=== PATIENT | male | born 1970 | race Caucasian/White ===

== ENCOUNTER 2023-10-14 22:52 | Emergency (ER) | payer OTHER, SELFPAY ==
[2023-10-14 22:59] VITALS: BP 142/94
[2023-10-14 23:14] LABS: % Eosinophils 2.1 % (0-6); % Lymphocytes 16.5 % (20.5-51.1); % Monocytes 8.6 % (1.7-9.3); % Neutrophils 70.8 % (42.2-75.2); Absolute Basophils 0.1 10^3/uL (0-0.2); Absolute Eosinophils 0.2 10^3/uL (0-0.7); Absolute Immature Granulocytes 0.1 10^3/uL (0-0.05); Absolute Lymphocytes 1.9 10^3/uL (1.2-3.4); Absolute Neutrophils 8.1 10^3/uL (1.4-6.5); Hematocrit 53.4 % (39.0-52.0); Hemoglobin 19.4 g/dL (13.0-18.0); Mean Corp Hgb Conc. 36.3 g/dL (33.0-37.0); Mean Corpuscular Hgb 33.3 pg (27.0-31.0); Mean Corpuscular Volume 91.6 fL (80.0-94.0); Mean Platelet Volume 9.3 fL (7.4-10.4); Nucleated Red Blood Cells % 0 % (-); Platelet Count 320 10^3/uL (130-400); Red Blood Cell Count 5.83 10^6/uL (4.70-6.10); Red Cell Dist. Width 12.6 % (11.5-14.5); White Blood Cell Count 11.5 10^3/uL (4.8-10.8)
[2023-10-14 23:26] LABS: Amphetamines Negative (Negative); Barbiturates Negative (Negative); Benzodiazepines Negative (Negative); Buprenorphine Negative (Negative); Cocaine Negative (Negative); Marijuana Negative (Negative); Methadone Negative (Negative); Methamphetamines Negative (Negative); Opiates Negative (Negative); Phencyclidine Negative (Negative); Tricyclic Antidepressants Negative (Negative)
[2023-10-14 23:34] LABS: Alcohol 14 mg/dl; Blood Urea Nitrogen 23 mg/dl (9-20); Carbon Dioxide 21 mmol/L (22-30); Chloride 97 mmol/L (98-107); Glucose 91 mg/dl (70-99); Potassium 3.9 mmol/L (3.5-5.1); Sodium 132 mmol/L (135-145); eGFR > 60.00
--- NOTE | 2023-10-14 23:47 | ED.GENMED ---
History of Present Illness
General
Chief Complaint: Crisis Evaluation
Source: patient
Exam Limitations: none
Time Seen by Provider: 10/14/23 23:23
Nursing documentation reviewed up to this point in time: agreed with
History of Present Illness
History of Present Illness:
The patient is a 53-year-old man with a past medical history of Crohn's disease and anxiety who was speaking to a driver utility worker over the phone and expressed suicidal thoughts. Patient reports that before he knew it, the police were at his door and
he was brought to [facility]. Patient reports that he has been feeling very angry lately and betrayed. Patient reports that he has thoughts that his life is no longer worth living. Patient is tearful. In addition, patient reports that
at times he drinks alcohol heavily to help with his sadness and anger. Patient reports that he last drank about 2 days ago. Patient reports that he lives alone at home. He reports that he is very afraid that he is dehydrated because he lays down
concrete outside in the heat and has not been drinking fluids. Patient denies headache, chest pain or shortness of breath.
Past History
Past History
ED Past Medical History: Other (Crohn's disease, peptic ulcer disease)
ED Past Surgical History: Other
Social History
Tobacco: Smoker
Alcohol: Occasional (none since 2013)
Drug: Other
Personal: Other
Living: alone
Employment: Employed
Family History
Family History: Other
Review of Systems
Review of Systems
Allergies reviewed?: Yes
All Other Systems: ROS reviewed and negative except as documented in HPI and ROS
Constitutional: Reports no symptoms
EENT: Reports no symptoms
Respiratory: Reports no symptoms
Cardiac: Reports no symptoms
ABD/GI: Reports no symptoms
: Reports no symptoms
Musculoskeletal: Reports no symptoms
Skin: Reports no symptoms
Neurological: Reports no symptoms
Endocrine: Reports no symptoms
Hematologic/Lymphatic: Reports no symptoms
Psychiatric: Reports depression and suicidal
Phy Exam
Physical Exam
Physical Exam:
Physical Exam
General: Patient appears sunburn and flushed. Patient is tearful but conversational
Neck: supple. no meningeal signs. normal psoterior pharynx
Heart: s1/s2 regular rate and rhythm, no murmur. equal radial pulses.
Lungs: no acute respiratory distress. clear bilaterally
Abdomen: normal bowel sounds. not tender. no CVAT
Neuro: alert and orientedx3 no focal neurological deficits
Skin: no rash
Psychiatric: well kept. interactive and cooperative
Extremities: no edema. no calf tenderness. negative homans. good distal pulses
Course
Orders/Labs/Results
Orders:
Orders
10/14/23 23:07
Alcohol Urgent
Basic Metabolic Panel Urgent
Complete Blood Count/With Diff Urgent
Urine Drug Abuse Screen Urgent
Date Specimen was Collected: 10/14/23
Time Specimen was Collected: 23:02
10/14/23 23:47
0.9% Sodium Chloride 1000 ml [Nss] 1,000 ml IV BOLUS
10/14/23 23:51
Crisis Consult Urgent
Reason for Consult: SI
Abnormal Lab Results
10/14/23
23:07
WBC 11.5 H 10^3/uL
(4.8-10.8)
Hgb 19.4 H g/dL
(13.0-18.0)
Hct 53.4 H %
(39.0-52.0)
MCH 33.3 H pg
(27.0-31.0)
Abs Immat Gran (auto) 0.1 H 10^3/uL
(0-0.05)
Absolute Neuts (auto) 8.1 H 10^3/uL
(1.4-6.5)
Absolute Monos (auto) 1.0 H 10^3/uL
(0.1-0.6)
Immature Gran % 1.0 H %
(0-0.5)
Lymphocytes % 16.5 L %
(20.5-51.1)
Sodium 132 L mmol/L
(135-145)
Chloride 97 L mmol/L
(98-107)
Carbon Dioxide 21 L mmol/L
(22-30)
BUN 23 H mg/dl
(9-20)
10/14/23 23:07
10/14/23 23:07
Vital Signs
Initial and Last Documented VS:
Initial Vital Signs
Temp Pulse Resp BP Pulse Ox
97.4 F 92 24 142/94 98
10/14/23 22:59 10/14/23 22:59 10/14/23 22:59 10/14/23 22:59 10/14/23 22:59
Last Documented Vital Signs
Temp Pulse Resp BP Pulse Ox
97.4 F 92 24 142/94 98
10/14/23 22:59 10/14/23 22:59 10/14/23 22:59 10/14/23 22:59 10/14/23 22:59
MDM/Problems Addressed
Differential Diagnosis Includes:
Acute dehydration, suicidal ideations, major depressive episode
MDM/Problems Addressed:
Patient reports acute on chronic depression and acute suicidal thoughts
*Pulse Oximetry
Patient hypoxic: no
*EKG
Interpreted by ED Provider?: NA
*Scissors Grinder Interpretation
Rate: Scissors Grinder- N/A
*Critical Care Note
Total Time (30-74mins, 75-104mins- exclusive of procedures): Not Applicable
Data Reviewed
Review of Other/Old Records Reveals: Testing (Colonoscopy appeared without significant abnormality in 2019)
Source: patient
Patient Management
Discussion with other providers: Other (Spoke to crisis team who reports that patient likely already has placement at [facility])
ED Attending Note
-
Portions of this chart may have been created with voice recognition software.� Occasional wrong word or��sound alike� substitutions may have occurred due to the inherent limitations of voice recognition software.
Discharge Plan
Departure
Patient Disposition: Psych Facility
Date of Disposition: 10/14/23
Time of Disposition: 23:54
Patient Status:: 201
Patient with high blood pressure during this ER visit?: Yes
Consults for patient: Crisis
Condition: Critical
Discharge Problem:
Suicidal thoughts
Prescriptions:
No Action
sertraline [Zoloft] 100 MG tablet
100 mg PO DAILY
clonazepam 1 MG tablet
1 mg PO BIDPRN PRN (Reason: anxiety)
oggzgvrw-ghu-athqd-vit K-lycop [Men's Daily Formula] 1 EACH tablet
1 ea PO DAILY
Super B Maxi Complex Caplet
1 tab PO DAILY
prednisone 10 MG tablet
10 mg PO DAILY Qty: 100 0RF
mesalamine [Apriso] 0.375 GM capsule,extended release 24hr
0.375 gm PO DAILY Qty: 90 3RF
Rx Instructions:
3 tablets daily
mesalamine [Canasa] 1,000 MG suppository
1,000 mg IN HS Qty: 30 3RF
vancomycin [Vancocin] 125 MG capsule
125 mg PO QID Qty: 44 0RF
Rx Instructions:
this pill to follow copletion of the 250 mg
vancomycin [Vancocin] 250 MG capsule
250 mg PO QID Qty: 40 0RF
omeprazole 20 MG capsule,delayed release(DR/EC)
20 mg PO DAILY Qty: 30 3RF
Bacillus coagulans [Probiotic (B. coagulans)] 1 EACH capsule,delayed release(DR/EC)
1 ea PO DAILY Qty: 30 0RF
Referrals:
UNKNOWN - PT DOES,NOT KNOW [Family Provider] -
Interventions
Interventions:
*Risk Screen - Suicide Last Done: 10/14/23 22:59
*General Assessment Last Done: 10/14/23 23:58
*Neglect/Abuse Screening Last Done: 10/14/23 22:59
ED- Fall Risk Assessment Last Done: 10/14/23 23:58
*ED COVID-19 Vaccine History Last Done: 10/14/23 23:58
ED-Psychological Assessment Last Done: 10/14/23 23:57
Discharge Date and Time
Print Language: FRISIAN
[2023-10-14] MEDS: NSS 1000 IV (23:56)
== END 2023-10-15 00:54 ==
LOC: EMR 22:52
PROVIDERS: EMERGENCY PHYSICIAN Emergency Medicine
DX: R45.851 Suicidal ideations (principal); R03.0 Elevated blood-pressure reading, without diagnosis of hypertension; K50.90 Crohn's disease, unspecified, without complications; F41.9 Anxiety disorder, unspecified; F32.A Depression, unspecified; Z87.11 Personal history of peptic ulcer disease; F17.200 Nicotine dependence, unspecified, uncomplicated; K52.9 Noninfective gastroenteritis and colitis, unspecified
CPT/HCPCS: 99284; 96360; 80048; 80306; 82077; 85025

== ENCOUNTER 2024-10-23 10:43 | Emergency (ER) | payer OTHER, SELFPAY ==
[2024-10-23] VITALS (7 sets, daily range): BP systolic 128–165; BP diastolic 84–126
[2024-10-23 11:39] LABS: Hematocrit 50.5 % (39.0-52.0); Hemoglobin 18.6 g/dL (13.0-18.0); Mean Corp Hgb Conc. 36.8 g/dL (33.0-37.0); Mean Corpuscular Volume 93.5 fL (80.0-94.0); Nucleated Red Blood Cells % 0 % (-); Platelet Count 334 10^3/uL (130-400); Red Cell Dist. Width 12.0 % (11.5-14.5)
--- NOTE | 2024-10-23 11:43 | ED.GENMED ---
Addendum entered and electronically signed by Evelio Serrato MD 10/23/24 16:56:
UPDATE (Evelio Serrato MD)
I have seen and evaluated the patient after signout and reviewed all labs and imaging.
Focused HPI: 54-year-old male with history of alcohol use presents to the ER with depression and SI in setting of recent alcohol use. It sounds that he is a binge drinker�on speaking with him he says that when he gus up 'I keep thinking that I
am a loser and sometimes have suicidal thoughts.' He denies any specific plan. He says that he came in seeking help. At the time my assessment he says he is not suicidal and is actually requesting to go home. He has a plan in place for the
weekend and feels comfortable managing this on his own without an inpatient psychiatric stay.
Physical exam: Awake and alert. His vital signs are normal on my assessment. He is not tremulous or diaphoretic. He is coherent, future oriented and seems to have good insight.
Medical Decision Makin-year-old male initially presented with suicidality and depression in the setting of alcohol use. He is clinically sober here and does not appear to be in acute withdrawal on my assessment although he did receive some
Valium earlier. Initial plan was for placement at [facility] for depression/suicidality. Patient is now requesting to leave the hospital. I had a long discussion with the patient about why he wants to leave the hospital and what his plan is.
He is definitively forward thinking he says that he is not suicidal but more down on himself for constantly going back to drinking. He contacted a friend and plans to go to an AA meeting [facility]. He is going golfing tomorrow with his friend and
Saturday has an appointment to have his car fixed and plans to go on a trip with his daughter. He says that he thinks he can manage staying sober on his own and does not feel he needs an inpatient psychiatric stay at this point in time. In my
judgment there are no grounds for involuntary psychiatric appointment at this point based on my observations. Will discharge in keeping with his wishes although I did stress with him that we are always available if he changes mind and he can return
to the ER if he desires further assistance for mental health or for alcohol rehab.
Original Note:
History of Present Illness
General
Chief Complaint: Suicidal Ideation
Source: patient
Exam Limitations: none
Time Seen by Provider: 10/23/24 11:25
Nursing documentation reviewed up to this point in time: agreed with
History of Present Illness
History of Present Illness:
54-year-old male binge drinker, been drinking 1/5 of whiskey a day feels anxious, nauseous yokasta has been in rehab before has been in mental health facilities before, he was hoping to make it to the weekend and start AA, he works in the [employer]
industry, he is on clonazepam chronically due to tinnitus he seems motivated for rehab today, has been sweating a lot,
Past History
Past History
ED Past Medical History: Psychiatric and Other (Crohn's disease, peptic ulcer disease)
ED Past Surgical History: Other
Social History
Tobacco: Smoker
Alcohol: Binge drinker (none since 2013)
Drug: None and Other
Personal: Single
Living: alone
Employment: Employed
Family History
Family History: Other
Review of Systems
Review of Systems
All Other Systems: Not applicable
Constitutional: Reports sleep disturbance; Denies fever
Respiratory: Reports no symptoms
ABD/GI: Reports nausea
Neurological: Reports dizzy and headache
Endocrine: Reports no symptoms
Hematologic/Lymphatic: Reports no symptoms
Psychiatric: Reports depression, anxiety and suicidal
Phy Exam
Physical Exam
Physical Exam:
Physical Exam
General: Disheveled somewhat tremulous male smells of alcohol
Neck: Dry lips
Heart: Tachycardic
Lungs: no acute respiratory distress. clear bilaterally
Abdomen: Soft not tender
Neuro: alert and oriented. no focal neurological deficits
Skin: no rash
Psychiatric: Anxious, redirectable admits to suicidal ideation
Extremities: no edema.
Scores
Withdrawal Assessment of Alcohol
Withdrawal Assessment Completed?: Yes
Nausea and Vomiting: Mild nausea with no vomiting
Tactile Disturbances: Mild itching, pins and needles, burning or numbness
Tremor: Not visible, but can be felt fingertip to fingertip
Auditory Disturbances: Very mild harshness or ability to fighten
Paroxysmal Sweats: Beads of sweat obvious on forehead
Visual Disturbances: Very mild sensitivity
Anxiety: Moderately anxious, or guarded, so anxiety is inferred
Headache, Fullness in Head: Very mild
Agitation: Moderately fidgety and restless
Orientation and clouding of sensorium: Oriented and can do serial additions
Total CIWA Score: 19
Alcohol Withdrawal Medication Recommendation: Equal to MSAS Score 8-11. Lorazepam 1-2mg IV NOW & re-assess q1hr
Course
Orders/Labs/Results
Orders:
Orders
10/23/24
CR Chest Portable - 1 View Urgent
Reason For Exam: SOB
10/23/24 10:47
EKG [Electrocardiogram (*1)] Urgent
Reason for Study: Shortness of Breath
EKG- Treatment ONCE
10/23/24 11:19
1:1 Observation - Suicide/ Violent Behavior As Directed
Crisis Consult Urgent
Reason for Consult: SI
10/23/24 11:24
Basic Metabolic Panel Urgent
Complete Blood Count/With Diff Urgent
Troponin I Urgent
10/23/24 11:40
diazePAM [Valium Injection] 10 mg IV NOW STA
10/23/24 11:41
0.9% Sodium Chloride 1000 ml [Nss] 1,000 ml IV BOLUS
10/23/24 11:42
Warm Handoff Consult ONCE
Patient agreeable to Warm Hand off: Yes
Crisis Consult Urgent
Reason for Consult: si
Nicotine Polacrilex [Nicorette] 4 mg PO NOW STA
10/23/24 12:04
Alcohol Urgent
Comprehensive Metabolic Panel Urgent
Comment: ADD ON
Lipase Urgent
Comment: ADD ON
Magnesium Urgent
10/23/24 12:33
Add On- LAB Urgent
Tests Added?: Lipase
10/23/24 12:38
Add On- LAB Urgent
Tests Added?: CMP
10/23/24 13:00
0.9% Sodium Chloride 1000 ml [Nss] 1,000 ml Mvi, Adult [Multivitamin] 10 ml Thiamine Injection 100 mg Magnesium Sulfate 2 grams IV 1,000 mls/hr
10/23/24 13:59
Nicotine Polacrilex [Nicorette] 4 mg PO Q4HPRN PRN
Abnormal Lab Results
10/23/24 10/23/24
11:24 12:04
WBC 13.7 H 10^3/uL
(4.8-10.8)
Hgb 18.6 H g/dL
(13.0-18.0)
MCH 34.4 H pg
(27.0-31.0)
Abs Immat Gran (auto) 0.1 H 10^3/uL
(0-0.05)
Absolute Neuts (auto) 9.6 H 10^3/uL
(1.4-6.5)
Absolute Monos (auto) 1.4 H 10^3/uL
(0.1-0.6)
Immature Gran % 0.6 H %
(0-0.5)
Lymphocytes % 17.6 L %
(20.5-51.1)
Monocytes % 10.2 H %
(1.7-9.3)
Sodium 128 L mmol/L 131 L mmol/L
(135-145) (135-145)
Chloride 95 L mmol/L
(98-107)
Carbon Dioxide 16 L mmol/L 18 L mmol/L
(22-30) (22-30)
Glucose 116 H mg/dl 102 H mg/dl
(70-99) (70-99)
Calcium 10.9 H mg/dl 10.3 H mg/dl
(8.4-10.2) (8.4-10.2)
AST 85 H U/L
(17-59)
ALT 123 H U/L
(0-50)
10/23/24 11:24
10/23/24 12:04
Vital Signs
Initial and Last Documented VS:
Initial Vital Signs
Temp Pulse Resp BP Pulse Ox
98.8 F 121 20 165/126 98
10/23/24 11:09 10/23/24 11:09 10/23/24 11:09 10/23/24 11:09 10/23/24 11:09
Last Documented Vital Signs
Temp Pulse Resp BP Pulse Ox
98.2 F 109 21 130/89 96
10/23/24 14:01 10/23/24 14:00 10/23/24 14:00 10/23/24 13:00 10/23/24 14:00
*Radiology
Radiology exam reviewed: radiology read reviewed
*Pulse Oximetry
SaO2: 98
Oxygen Mode of Delivery: Room air
Patient hypoxic: no
*EKG
Interpreted by ED Provider?: Yes
Interpretation: abnormal
Comparison EKG: no comparison EKG present
Heart Rate: 111
Rate: tachycardiac
Rhythm: sinus
Ischemia: non-specific ST changes
*Teaching Fellow Interpretation
Rate: tachycardiac
Interpretation: abnormal
Heart Rate: 110
Rhythm: sinus
*Critical Care Note
Total Time (30-74mins, 75-104mins- exclusive of procedures): Not Applicable
Update Note
Update Note:
3 PM labs noted, patient resting comfortably heart rate is normalized, medically clear for psychiatric placement and evaluation
ED Attending Note
-
Portions of this chart may have been created with voice recognition software.� Occasional wrong word or��sound alike� substitutions may have occurred due to the inherent limitations of voice recognition software.
Discharge Plan
Departure
Patient Disposition: Psych Facility
Date of Disposition: 10/23/24
Time of Disposition: 14:54
Condition: Good
Discharge Problem:
Suicidal ideation, Alcoholism
Prescriptions:
No Action
sertraline [Zoloft] 100 MG tablet
100 mg PO DAILY
clonazepam 1 MG tablet
1 mg PO BIDPRN PRN (Reason: anxiety)
mahgntvi-uri-zutfq-vit K-lycop [Men's Daily Formula] 1 EACH tablet
1 ea PO DAILY
Super B Maxi Complex Caplet
1 tab PO DAILY
prednisone 10 MG tablet
10 mg PO DAILY Qty: 100 0RF
mesalamine [Apriso] 0.375 GM capsule,extended release 24hr
0.375 gm PO DAILY Qty: 90 3RF
Rx Instructions:
3 tablets daily
mesalamine [Canasa] 1,000 MG suppository
1,000 mg NC HS Qty: 30 3RF
vancomycin [Vancocin] 125 MG capsule
125 mg PO QID Qty: 44 0RF
Rx Instructions:
this pill to follow copletion of the 250 mg
vancomycin [Vancocin] 250 MG capsule
250 mg PO QID Qty: 40 0RF
omeprazole 20 MG capsule,delayed release(DR/EC)
20 mg PO DAILY Qty: 30 3RF
Bacillus coagulans [Probiotic (B. coagulans)] 1 EACH capsule,delayed release(DR/EC)
1 ea PO DAILY Qty: 30 0RF
Referrals:
Emmanuel Burgess MD [Family Provider, Family Practice]
Interventions
Interventions:
*Risk Screen - Suicide Last Done: 10/23/24 12:29
*General Assessment Last Done: 10/23/24 11:09
*Neglect/Abuse Screening Last Done: 10/23/24 11:09
ED-Psychological Assessment Last Done: 10/23/24 11:44
Discharge Date and Time
Print Language: ALBANIAN
[2024-10-23] MEDS: NSS 1000 IV (11:50)
[2024-10-23 11:58] LABS: Troponin I < 0.012 ng/ml
[2024-10-23] MEDS: VALIUM INJECTION 10 MG IV (11:58)
[2024-10-23] MEDS: NICORETTE 4 MG PO ×2 (11:58→14:04)
[2024-10-23 11:59] LABS: Blood Urea Nitrogen 17 mg/dl (9-20); Calcium 10.9 mg/dl (8.4-10.2); Carbon Dioxide 16 mmol/L (22-30); Chloride 95 mmol/L (98-107); Glucose 116 mg/dl (70-99); Sodium 128 mmol/L (135-145); eGFR > 60.00
[2024-10-23 12:49] LABS: Lipase 89 U/L (23-300); Magnesium 2.0 mg/dl (1.6-2.3)
[2024-10-23 13:06] LABS: ALT (SGPT) 123 U/L (0-50); AST (SGOT) 85 U/L (17-59); Albumin 5.0 g/dl (3.5-5.0); Alkaline Phosphatase 74 U/L (38-126); Blood Urea Nitrogen 16 mg/dl (9-20); Calcium 10.3 mg/dl (8.4-10.2); Carbon Dioxide 18 mmol/L (22-30); Chloride 98 mmol/L (98-107); Glucose 102 mg/dl (70-99); Potassium 3.8 mmol/L (3.5-5.1); Sodium 131 mmol/L (135-145); Total Protein 7.7 g/dl (6.3-8.2); eGFR > 60.00
[2024-10-23] MEDS: MULTIVITAMIN 1015 GRAMS IV (13:34)
[2024-10-23] MEDS: MULTIVITAMIN 1015 ML IV (13:34)
[2024-10-23] MEDS: MULTIVITAMIN 1015 MG IV (13:34)
== END 2024-10-23 17:18 | disposition home or self-care (01) ==
LOC: EMR 10:43
PROVIDERS: Emergency Medicine; EMERGENCY PHYSICIAN Emergency Medicine; FAMILY PHYSICIAN Family Medicine
DX: R45.851 Suicidal ideations (principal); F10.20 Alcohol dependence, uncomplicated; F17.200 Nicotine dependence, unspecified, uncomplicated
CPT/HCPCS: 99285; 96365; 96375; 96361; 71045; 80048; 80053; 82077; 83690; 83735; 84484; 85025; 93005